=== PATIENT | male | born 1995 | race Caucasian/White ===

== ENCOUNTER 2018-05-01 02:06 | Inpatient (IN) | payer OTHER ==
[2018-05-01] VITALS (15 sets, daily range): BP systolic 14–145; BP diastolic 60–84; PULSE 67–99; RESP 15–23; Ht 180.3 cm; Wt 97.1 kg
[~2018-05-01] VITALS: Ht 180.3 cm; Wt 97.1 kg
[2018-05-01] MEDS ORDERED: morphine 4 MG/ML VIAL IV STA (03:23)
[2018-05-01] MEDS ORDERED: SOD CHLORIDE 0.9% 1,000 ML IV STA (03:23)
[2018-05-01] MEDS ORDERED: ONDANSETRON 4 MG INJ IV STA ×2 (03:23→04:35)
[2018-05-01] MEDS ORDERED: HYDROmorphONE 0.5 MG/0.5 ML SYG IV STA (04:35)
--- NOTE | 2018-05-01 05:31 | ERD ---
ER Documentation Chief Complaint Chief Complaint abdominal pain/vomiting x 1 day HPI 22-year-old male presents with 10 out of 10 bilateral lower abdominal pain associated with nonbilious nonbloody vomiting for the past few hours. Patient denies any fevers. Diarrhea. She states that his last meal was at midnight however he vomited. Patient denies taking any medications. Denies any abdominal surgeries. ROS All systems reviewed and are negative except as per history of present illness. Allergies Allergies: Coded Allergies: No Known Drug Allergy (Verified Allergy, Unknown, 05/01/18) PMhx/Soc Medical and Surgical Hx: pt denies Medical Hx, pt denies Surgical Hx Hx Alcohol Use: No Hx Substance Use: No Hx Tobacco Use: No Smoking Status: Never smoker Physical Exam Vitals Vital Signs Date Temp Pulse Resp B/P (MAP) Pulse Ox O2 O2 Flow FiO2 Time Delivery Rate 05/01/18 86 21 133/83 98 Room Air 05:19 (100) 05/01/18 98.6 100 18 139/79 97 02:09 (99) Physical Exam Const: No acute distress Head: Atraumatic Eyes: Normal Conjunctiva ENT: Normal External Ears, Nose and Mouth. Neck: Full range of motion. No meningismus. Resp: Clear to auscultation bilaterally Cardio: Regular rate and rhythm, no murmurs Abd: Tender palpation of the and right lower quadrant. Palpation of the left pelvic region Skin: No petechiae or rashes Back: No midline or flank tenderness Ext: No cyanosis, or edema Neur: Awake and alert Psych: Normal Mood and Affect Result Diagram: 05/01/18 0345 05/01/18 0345 Results 24 hrs Laboratory Tests Test 05/01/18 03:45 05/01/18 04:12 White Blood Count 19.5 10^3/ul Red Blood Count 5.23 10^6/ul Hemoglobin 16.0 g/dl Hematocrit 44.6 % Mean Corpuscular Volume 85.3 fl Mean Corpuscular Hemoglobin 30.6 pg Mean Corpuscular Hemoglobin Concent 35.9 g/dl Red Cell Distribution Width 11.9 % Platelet Count 217 10^3/UL Mean Platelet Volume 11.8 fl Immature Granulocytes % 0.500 % Neutrophils % 87.4 % Lymphocytes % 4.5 % Monocytes % 7.3 % Eosinophils % 0.1 % Basophils % 0.2 % Nucleated Red Blood Cells % 0.0 /100WBC Immature Granulocytes # 0.100 10^3/ul Neutrophils # 17.1 10^3/ul Lymphocytes # 0.9 10^3/ul Monocytes # 1.4 10^3/ul Eosinophils # 0.0 10^3/ul Basophils # 0.0 10^3/ul Nucleated Red Blood Cells # 0.0 10^3/ul Sodium Level 140 mmol/L Potassium Level 3.5 mmol/L Chloride Level 102 mmol/L Carbon Dioxide Level 25 mmol/L Anion Gap 13 Blood Urea Nitrogen 13 mg/dl Creatinine 0.72 mg/dl Est Glomerular Filtrat Rate mL/min > 60 mL/min Glucose Level 128 mg/dl Calcium Level 9.9 mg/dl Total Bilirubin 0.9 mg/dl Direct Bilirubin 0.00 mg/dl Indirect Bilirubin 0.9 mg/dl Aspartate Amino Transf (AST/SGOT) 73 IU/L Alanine Aminotransferase (ALT/SGPT) 144 IU/L Alkaline Phosphatase 117 IU/L Total Protein 9.0 g/dl Albumin 5.1 g/dl Globulin 3.90 g/dl Albumin/Globulin Ratio 1.30 Lipase 66 U/L Urine Color YELLOW Urine Clarity CLEAR Urine pH 7.0 Urine Specific [place] 1.026 Urine Ketones 2+ mg/dL Urine Nitrite NEGATIVE mg/dL Urine Bilirubin NEGATIVE mg/dL Urine Urobilinogen NEGATIVE mg/dL Urine Leukocyte Esterase NEGATIVE Jet/ul Urine Hemoglobin NEGATIVE mg/dL Urine Glucose NEGATIVE mg/dL Urine Total Protein NEGATIVE mg/dl Current Medications Medications Dose Sig/Abigail Start Time Status Last (Trade) Ordered Route PRN Stop Time Admin Dose Reason Admin Sodium 1,000 ml @ Q1H STAT 05/01/18 DC 05/01/18 Chloride 1,000 mls/hr IV 03:23 05/01/18 03:51 04:22 Morphine 4 mg ONCE STAT 05/01/18 DC 05/01/18 Sulfate IV 03:23 05/01/18 03:51 (morphine) 03:24 Ondansetron 4 mg ONCE STAT 05/01/18 DC 05/01/18 HCl (Zofran IV 03:23 05/01/18 03:51 Inj) 03:24 0.5 mg ONCE STAT 05/01/18 DC 05/01/18 Hydromorphone IV 04:35 05/01/18 05:13 HCl 04:38 (Dilaudid) Ondansetron 4 mg ONCE STAT 05/01/18 DC 05/01/18 HCl (Zofran IV 04:35 05/01/18 05:13 Inj) 04:38 Procedures/MDM This is a 22-year-old male presenting with acute appendicitis any evidence of perforation or abscess. Patient is afebrile and nontoxic-appearing. IV access established patient was given 1 L fluids. His pain stabilized in the emergency department and he is stable to be transferred to the OR. I discussed this case with my supervising physician who will obtain hospitalist and surgery consult Departure Diagnosis: Primary Impression: Appendicitis Condition: YOKO Coleman PA-C May 01, 2018 05:31
--- NOTE | 2018-05-01 05:57 | HP ---
Date/Time of Note Date/Time of Note DATE: 05/01/18 TIME: 05:52 Assessment/Plan VTE Prophylaxis SCD applied (from Nsg): Yes Pharmacological prophylaxis: NA/contraindicated Pharm contraindication: low risk/ambulating Lines/Catheters IV Catheter Type (from Nrsg): Saline Lock Assessment/Plan Hospital Course This is a 22-year male being admitted to the [facility] floor for: #1 acute appendicitis: We will keep the patient n.p.o. except meds, maintenance fluid hydration with normal saline, pain management, Zofran for nausea, Zosyn every 6 hours, general surgery is already been consulted by the ED, doctor Brando. Will check PTT/INR/PT #2 transaminitis: Likely secondary to fatty liver seen on CT. Will check lipid panel. Will need outpatient follow-up. #3 borderline obesity: We will check hemoglobin A1c, lipid panel, TSH #4 DVT GI prophylaxis: SCDs, no GI prophylaxis indicated Further treatment strategy will be implemented as per the clinical course Result Diagram: 05/01/18 0345 05/01/18 0345 Results 24hrs Laboratory Tests Test 05/01/18 03:45 05/01/18 04:12 White Blood Count 19.5 H Red Blood Count 5.23 Hemoglobin 16.0 Hematocrit 44.6 Mean Corpuscular Volume 85.3 Mean Corpuscular Hemoglobin 30.6 Mean Corpuscular Hemoglobin Concent 35.9 Red Cell Distribution Width 11.9 Platelet Count 217 Mean Platelet Volume 11.8 H Immature Granulocytes % 0.500 H Neutrophils % 87.4 H Lymphocytes % 4.5 L Monocytes % 7.3 Eosinophils % 0.1 Basophils % 0.2 Nucleated Red Blood Cells % 0.0 Immature Granulocytes # 0.100 H Neutrophils # 17.1 H Lymphocytes # 0.9 Monocytes # 1.4 H Eosinophils # 0.0 Basophils # 0.0 Nucleated Red Blood Cells # 0.0 Sodium Level 140 Potassium Level 3.5 Chloride Level 102 Carbon Dioxide Level 25 Anion Gap 13 Blood Urea Nitrogen 13 Creatinine 0.72 Est Glomerular Filtrat Rate mL/min > 60 Glucose Level 128 Calcium Level 9.9 Total Bilirubin 0.9 Direct Bilirubin 0.00 Indirect Bilirubin 0.9 Aspartate Amino Transf (AST/SGOT) 73 H Alanine Aminotransferase (ALT/SGPT) 144 H Alkaline Phosphatase 117 Total Protein 9.0 H Albumin 5.1 H Globulin 3.90 H Albumin/Globulin Ratio 1.30 Lipase 66 Urine Color YELLOW Urine Clarity CLEAR Urine pH 7.0 Urine Specific [place] 1.026 Urine Ketones 2+ H Urine Nitrite NEGATIVE Urine Bilirubin NEGATIVE Urine Urobilinogen NEGATIVE Urine Leukocyte Esterase NEGATIVE Urine Hemoglobin NEGATIVE Urine Glucose NEGATIVE Urine Total Protein NEGATIVE HPI/ROS Admit Date/Time Admit Date/Time Hx of Present Illness Chief complaint: Abdominal pain This is a 22-year-old male who comes in today complaining of abdominal pain that started last night. Patient reports that abdominal pain started approximately 7 PM last night with associated nausea and vomiting. He reports that the pain is across the abdomen. He denies any chest pain or shortness of breath. He denies any fevers. He did receive pain medications in the ER that did improve the pain however at the current time his pain is a 7 out of 10. He denies any dysuria. Denies eating any foul food. Allergies: Seafood Medications: None ROS Const: As per HPI Eyes : No pain discharge or redness or change in visual acuity ENT: No pain, sore throat, congestion, congestion, dysphagia or discharge Respiratory: No shortness of breath, cough, sputum, wheezing, or pleuritic pain Cardiovascular: No chest pain, palpitation, PND, or edema GI : As per HPI Genitourinary: No dysuria, hematuria, flank pain , discharge or CVA tenderness Musculoskeletal: No joint pain, back pain, neck pain, restricted range of motion in neck or joints Skin: No rash, bruising or hives Neuro: No headache, dizziness, syncope, seizure, focal weakness Endocrine: No polyuria, polydipsia, temperature intolerance Psych: No hallucination, depression, anxiety or suicidal ideation PMH/Family/Social Past Medical History Medical History: no pertinent history Medications Current Medications Piperacillin Sod/ Tazobactam Sod 100 ml @ 200 mls/hr ONCE ONCE IVPB ; Start 05/01/18 at 06:00; Stop 05/01/18 at 06:29 Coded Allergies: No Known Drug Allergy (Verified Allergy, Unknown, 05/01/18) Past Surgical History Past Surgical Hx: no surgical history Family History Significant Family History: no pertinent family hx Social History Alcohol Use: none Smoking Status: Never smoker Drug Use: none Exam/Review of Systems Vital Signs Vitals Vital Signs Date Temp Pulse Resp B/P (MAP) Pulse Ox O2 O2 Flow FiO2 Time Delivery Rate 05/01/18 86 21 133/83 98 Room Air 05:19 (100) 05/01/18 98.6 02:09 Exam Exam General: Patient is a pleasant male currently lying in bed in mild distress from abdominal pain HEENT: Atraumatic, normocephalic. The pupils are equal, round and reactive. Extraocular motor are intact Neck: Supple with full range of motion. No rigidity or meningismus Chest: Nontender Lungs: Clear to auscultation bilaterally no crackles rales or wheezing Heart: Normal S1-S2, Regular rhythm and rate. No murmur, S3, or S4 Abdomen: Soft, tenderness palpation over the left lower quadrant as well as the central lower abdomen, right lower quadrant tenderness to palpation however it is greater on the left, positive McBurney's point tenderness Extremities: Normal to inspection, no edema no cyanosis Neurologic: Normal mental status, speech normal, cranial nerves II through XII are intact, motor and sensory are intact, no focal weakness Additional Comments PROCEDURE: CT Abdomen and pelvis without contrast. CLINICAL INDICATION: Abdominal pain TECHNIQUE: CT scan of the abdomen and pelvis without contrast was performed on a multidetector high-resolution CT scan. . Coronal and sagittal reformatted images were obtained from the axial source images. Standard CT scan of the abdomen pelvis without contrast protocols were performed. The total exam CTDI equals 17.45 mGy and the total exam DLP equals 1132.03 mGy- cm. One or more of the following dose reduction techniques were used: - Automated exposure control. - Adjustment of the mA and/or kV according to patient size. Use of iterative reconstruction technique. Dicom images are available COMPARISON: None. FINDINGS: The appendix is dilated with a maximal transverse diameter 1.2 cm with wall thickening and mild periappendiceal induration/stranding consistent with acute appendicitis. Negative free air or abscess. Trace fluid in the lower pelvis. Prominent but nonspecific lymph nodes right lower quadrant mesentery. No definite abdominal pelvic lymphadenopathy. Stomach, small bowel and large bowel are unremarkable. Kidneys are normal in size without calcified calculi hydronephrosis or intra renal masses bilaterally. No evidence of ureteral calcified calculi or dilatat ion. Contracted otherwise unremarkable urinary bladder. Prostate unremarkable. Hepatomegaly with diffuse hepatic fatty infiltration but no focal hepatic lesions. Spleen pancreas adrenal glands and gallbladder are unremarkable. No evidence biliary ductal dilation. Aorta unremarkable. Right inguinal fat-containing hernia without herniated bowel or strangulation. Abdominal pelvic wall otherwise unremarkable. Small focal scarring lingula left upper lobe. Lung bases otherwise unremarkable. Mild degenerate changes lower thoracic and lumbar spine without acute osseous findings are osteoblastic/osteolytic lesions. IMPRESSION: 1. Acute appendicitis as described above without free air or abscess. 2. Small right fat containing inguinal hernia without herniated bowel or strangulation. III hepatomegaly with diffuse hepatic fatty infiltration. Addendum: Physician field administrative assistant Svitlana was telephoned this results on 05/01/2018 at 0428 hours. RPTAT:AAJJ Physician Arlin Date Time Electronically viewed and signed by Physician Arlin on 05/01/2018 04:36 BM/ CC: YOKO VAZ PA-C [id number] YAMILA DURAN May 01, 2018 05:57
[2018-05-01] MEDS ORDERED: PIPER-TAZO 3.375 GM IV (PMX) 100 ML IVPB ONE (06:00)
[2018-05-01] MEDS ORDERED: ONDANSETRON 4 MG INJ IV PRN ×2 (06:00→16:00)
[2018-05-01] MEDS ORDERED: NACL 0.9% 3 ML SYG IV SCH (06:00)
[2018-05-01] MEDS ORDERED: ACETAMINOPHEN 325 MG TAB PO PRN (06:00)
[2018-05-01] MEDS ORDERED: morphine 2 MG INJ IV PRN (06:00)
[2018-05-01] MEDS ORDERED: DOCUSATE SODIUM 100 MG CAP PO PRN (06:00)
[2018-05-01] MEDS ORDERED: BISACODYL (EC) 5 MG TAB PO PRN (06:00)
[2018-05-01] MEDS ORDERED: DESFLURANE 15 MIN ONE (07:00)
[2018-05-01] MEDS: SOD CHLORIDE 0.9% 1,000 ML IV SCH ×3 (10:37→18:13)
[2018-05-01] MEDS: morphine 4 MG/ML VIAL IV PRN ×2 (10:48→18:12)
--- NOTE | 2018-05-01 11:33 | PN ---
Date/Time of Note Date/Time of Note DATE: 05/01/18 TIME: 11:30 Assessment/Plan VTE Prophylaxis Risk score (from Ns)>0 risk: 1 SCD applied (from Ns): Yes Pharmacological prophylaxis: NA/contraindicated Pharm contraindication: low risk/ambulating Lines/Catheters IV [facility]from [facility] Saline Lock Urinary Cath still in place: No Assessment/Plan Hospital Course SUBJECTIVE: Abdominal pain well controlled with analgesics. OBJECTIVE: Physical Exam General: Adequately build 22 year-old male lying in bed in no apparent distress. HEENT: Normocephalic, atraumatic. Eyes: Anicteric sclerae, conjunctivae clear. ENT: Nasal septum midline, oral mucosa moist. Neck supple, no JVD noticed. Respiratory: Bilaterally clear breath sounds. No use of accessory muscles of respiration. No adventitious breath sounds. Cardiovascular: S1, S2 heard. No murmurs or gallops. Abdomen: Soft and nondistended. Right lower quadrant tenderness, positive Rov sing sign. Bowel sounds positive in all 4 quadrants. Genitourinary: Deferred. Extremities: No cyanosis, no clubbing, no edema. Peripheral pulses palpable. Neurologic: Cranial nerves II through XII grossly intact. The patient is awake, alert, and oriented. Skin: Normal skin turgor. No skin rashes. Labs & Vitals per chart ASSESSMENT & PLAN 22-year-old male who denied any significant past medical history who came to the emergency room with chief complaint of abdominal pain with associated nausea and vomiting with CT evidence of acute appendicitis, who was admitted to inpatient setting for further treatment and evaluation. 1. Acute abdominal pain. -CT evidence of acute appendicitis. -Continue n.p.o. -Continue IV fluids. -Continue empiric antibiotics -Continue pain control. -Await surgical evaluation/intervention. 2. Sepsis with leukocytosis and tachycardia secondary to underlying appendicitis, present on admission. -Continue antimicrobials. 3. Transaminitis without hyperbilirubinemia. -Etiology unclear. -Trend LFTs. -Possibly related to fatty liver. 4. Fatty liver. -Incidental finding. -Fasting lipid panel already ordered. 5. Fluids, electrolytes, and nutrition. -N.p.o. except for medications. -IV fluids. 6. DVT prophylaxis -Bilateral SCDs. 7. Plan. -Continue pain control. -Continue n.p.o. -Continue antibiotics -Await surgical evaluation. The patient was seen in collaboration with Dr. Myers. The plan of care was explained to the patient and the patient's mother who was at the bedside. Result Diagram: 05/01/18 0345 05/01/18 0345 Results 24hrs Laboratory Tests Test 05/01/18 03:45 05/01/18 04:12 05/01/18 07:13 White Blood Count 19.5 H Red Blood Count 5.23 Hemoglobin 16.0 Hematocrit 44.6 Mean Corpuscular Volume 85.3 Mean Corpuscular Hemoglobin 30.6 Mean Corpuscular Hemoglobin Concent 35.9 Red Cell Distribution Width 11.9 Platelet Count 217 Mean Platelet Volume 11.8 H Immature Granulocytes % 0.500 H Neutrophils % 87.4 H Lymphocytes % 4.5 L Monocytes % 7.3 Eosinophils % 0.1 Basophils % 0.2 Nucleated Red Blood Cells % 0.0 Immature Granulocytes # 0.100 H Neutrophils # 17.1 H Lymphocytes # 0.9 Monocytes # 1.4 H Eosinophils # 0.0 Basophils # 0.0 Nucleated Red Blood Cells # 0.0 Sodium Level 140 Potassium Level 3.5 Chloride Level 102 Carbon Dioxide Level 25 Anion Gap 13 Blood Urea Nitrogen 13 Creatinine 0.72 Est Glomerular Filtrat Rate mL/min > 60 Glucose Level 128 Calcium Level 9.9 Total Bilirubin 0.9 Direct Bilirubin 0.00 Indirect Bilirubin 0.9 Aspartate Amino Transf (AST/SGOT) 73 H Alanine Aminotransferase (ALT/SGPT) 144 H Alkaline Phosphatase 117 Total Protein 9.0 H Albumin 5.1 H Globulin 3.90 H Albumin/Globulin Ratio 1.30 Lipase 66 Urine Color YELLOW Urine Clarity CLEAR Urine pH 7.0 Urine Specific [place] 1.026 Urine Ketones 2+ H Urine Nitrite NEGATIVE Urine Bilirubin NEGATIVE Urine Urobilinogen NEGATIVE Urine Leukocyte Esterase NEGATIVE Urine Hemoglobin NEGATIVE Urine Glucose NEGATIVE Urine Total Protein NEGATIVE Prothrombin Time 13.4 Prothrombin Time Ratio 1.0 INR International Normalized Ratio 1.01 Activated Partial Thromboplast Time 31.9 Exam/Review of Systems Vital Signs Vitals Vital Signs Date Temp Pulse Resp B/P (MAP) Pulse Ox O2 O2 Flow FiO2 Time Delivery Rate 05/01/18 98.4 88 16 112/60 98 07:55 (77) 05/01/18 Room Air 06:17 Medications Medications Current Medications Sodium Chloride 1,000 ml @ 100 mls/hr Q10H IV Last administered on 05/01/18at 10 :37; Admin Dose 100 MLS/HR; Start 05/01/18 at 05:57 IV Flush (NS 3 ml) 3 ml PER PROTOCOL IV ; Start 05/01/18 at 06:00 Ondansetron HCl (Zofran Inj) 4 mg Q6H PRN IV NAUSEA AND/OR VOMITING; Start 05/01/18 at 06:00 Acetaminophen (Tylenol Tab) 650 mg Q6H PRN PO PAIN LEVEL 1-3 OR FEVER; Start 05/01/18 at 06:00 Docusate Sodium (Colace) 100 mg Q12H PRN PO CONSTIPATION; Start 05/01/18 at 06:00 Bisacodyl (Dulcolax) 5 mg DAILY PRN PO CONSTIPATION; Start 05/01/18 at 06:00 Morphine Sulfate (morphine) 4 mg Q4H PRN IV SEVERE PAIN LEVEL 7-10 Last administered on 05/01/18at 10:48; Admin Dose 4 MG; Start 05/01/18 at 11:00 MATTHEW HERNANDES NP May 01, 2018 11:33
[2018-05-01] MEDS: PIPER-TAZO 3.375 GM IV (PMX) 100 ML IVPB SCH ×3 (12:17→23:43)
--- NOTE | 2018-05-01 12:50 | CONS ---
Date/Time of Note Date/Time of Note DATE: 05/01/18 TIME: 12:37 Assessment/Plan Assessment/Plan Assessment/Plan 1. Acute appendicitis: -OR -Antibiotics -N.p.o. 2. Leukocytosis: 2/2 #1 -As above -Trend 3. Abdominal pain: -Pain management 4. Mild transaminitis with CT findings of Hepatomegaly with hepatic fatty infiltration: -Diet and exercise/weight management -medical/Hepatology follow-up Small right fat-containing inguinal hernia: -Weight loss -Eventual outpatient surgical follow-up Thank you. Patient seen and examined in collaboration with Dr. Ramu Michaels. Result Diagram: 05/01/18 0345 05/01/18 0345 Results 24hrs Laboratory Tests Test 05/01/18 03:45 05/01/18 04:12 05/01/18 07:13 White Blood Count 19.5 H Red Blood Count 5.23 Hemoglobin 16.0 Hematocrit 44.6 Mean Corpuscular Volume 85.3 Mean Corpuscular Hemoglobin 30.6 Mean Corpuscular Hemoglobin Concent 35.9 Red Cell Distribution Width 11.9 Platelet Count 217 Mean Platelet Volume 11.8 H Immature Granulocytes % 0.500 H Neutrophils % 87.4 H Lymphocytes % 4.5 L Monocytes % 7.3 Eosinophils % 0.1 Basophils % 0.2 Nucleated Red Blood Cells % 0.0 Immature Granulocytes # 0.100 H Neutrophils # 17.1 H Lymphocytes # 0.9 Monocytes # 1.4 H Eosinophils # 0.0 Basophils # 0.0 Nucleated Red Blood Cells # 0.0 Sodium Level 140 Potassium Level 3.5 Chloride Level 102 Carbon Dioxide Level 25 Anion Gap 13 Blood Urea Nitrogen 13 Creatinine 0.72 Est Glomerular Filtrat Rate mL/min > 60 Glucose Level 128 Calcium Level 9.9 Total Bilirubin 0.9 Direct Bilirubin 0.00 Indirect Bilirubin 0.9 Aspartate Amino Transf (AST/SGOT) 73 H Alanine Aminotransferase (ALT/SGPT) 144 H Alkaline Phosphatase 117 Total Protein 9.0 H Albumin 5.1 H Globulin 3.90 H Albumin/Globulin Ratio 1.30 Lipase 66 Urine Color YELLOW Urine Clarity CLEAR Urine pH 7.0 Urine Specific [place] 1.026 Urine Ketones 2+ H Urine Nitrite NEGATIVE Urine Bilirubin NEGATIVE Urine Urobilinogen NEGATIVE Urine Leukocyte Esterase NEGATIVE Urine Hemoglobin NEGATIVE Urine Glucose NEGATIVE Urine Total Protein NEGATIVE Prothrombin Time 13.4 Prothrombin Time Ratio 1.0 INR International Normalized Ratio 1.01 Activated Partial Thromboplast Time 31.9 Consultation Date/Type/Reason Admit Date/Time Date of Consultation: May 01, 2018 Type of Consult surgical Reason for Consultation appendicitis Requesting Provider: SAUNDRA RICH MD Hx of Present Illness Delio sánchez is a 22-year-old man without significant past medical or surgical history who presents to the ED with complaints of lower abdominal pain. Lower abdominal pain began the night prior. Pain is described as strong and persistent. Associated symptoms include nausea with vomiting, nonbloody emesis. He denies fevers, chills, chest pain, palpitations, seizure, rash, abdominal injury, change in bowel or bladder habits. CT of the abdomen shows dilated appendix with maximal transverse diameter 1.2 cm with wall thickening mild periappendiceal induration/stranding. Leukocytosis was also noted on laboratory findings. General surgery was asked to evaluate. 12 point review of systems was performed and is negative except for stated in HPI. Past Medical History Obesity: BMI 30 Medications Current Medications Sodium Chloride 1,000 ml @ 100 mls/hr Q10H IV Last administered on 05/01/18at 10:37; Admin Dose 100 MLS/HR; Start 05/01/18 at 05:57 IV Flush (NS 3 ml) 3 ml PER PROTOCOL IV ; Start 05/01/18 at 06:00 Ondansetron HCl (Zofran Inj) 4 mg Q6H PRN IV NAUSEA AND/OR VOMITING; Start 05/01/18 at 06:00 Acetaminophen (Tylenol Tab) 650 mg Q6H PRN PO PAIN LEVEL 1-3 OR FEVER; Start 05/01/18 at 06:00 Docusate Sodium (Colace) 100 mg Q12H PRN PO CONSTIPATION; Start 05/01/18 at 06:00 Bisacodyl (Dulcolax) 5 mg DAILY PRN PO CONSTIPATION; Start 05/01/18 at 06:00 Morphine Sulfate (morphine) 4 mg Q4H PRN IV SEVERE PAIN LEVEL 7-10 Last administered on 05/01/18at 10:48; Admin Dose 4 MG; Start 05/01/18 at 11:00 Piperacillin Sod/ Tazobactam Sod 100 ml @ 200 mls/hr Q6 IVPB Last administered on 05/01/18at 12:17; Admin Dose 200 MLS/HR; Start 05/01/18 at 12:00 Allergies: Coded Allergies: No Known Drug Allergy (Verified Allergy, Unknown, 05/01/18) Past Surgical History Past Surgical Hx: no surgical history Social History Alcohol Use: none Smoking Status: Never smoker Drug Use: none Exam/Review of Systems Vital Signs Vitals Vital Signs Date Temp Pulse Resp B/P (MAP) Pulse Ox O2 O2 Flow FiO2 Time Delivery Rate 05/01/18 98.4 88 16 112/60 98 07:55 (77) 05/01/18 Room Air 06:17 Exam Constitutional: alert, oriented, well developed Psych: nl mood/affect; No anxiety Head: normocephalic, atraumatic Eyes: nl conjunctiva, EOMI, nl lids, nl sclera ENMT: nl external ears & nose, nl lips & teeth, mucosa pink and moist Neck: supple, non-tender; No jvd Respiratory: normal air movement; No congested cough, No labored breathing Cardiovascular: regular rate and rhythm, nl pulses; No edema Gastrointestinal: soft, tender (Bilateral lower quadrants; McBurney's point) Genitourinary - Male: nl penis, nl scrotum Musculoskeletal: nl extremities to inspection, nl gait and stance Extremities: normal pulses; No edema, No pitting pedal edema Neurological: nl speech, nl strength Skin: No rash or lesions Medications Medications Current Medications Sodium Chloride 1,000 ml @ 100 mls/hr Q10H IV Last administered on 05/01/18at 10:37; Admin Dose 100 MLS/HR; Start 05/01/18 at 05:57 IV Flush (NS 3 ml) 3 ml PER PROTOCOL IV ; Start 05/01/18 at 06:00 Ondansetron HCl (Zofran Inj) 4 mg Q6H PRN IV NAUSEA AND/OR VOMITING; Start 05/01/18 at 06:00 Acetaminophen (Tylenol Tab) 650 mg Q6H PRN PO PAIN LEVEL 1-3 OR FEVER; Start 05/01/18 at 06:00 Docusate Sodium (Colace) 100 mg Q12H PRN PO CONSTIPATION; Start 05/01/18 at 06:00 Bisacodyl (Dulcolax) 5 mg DAILY PRN PO CONSTIPATION; Start 05/01/18 at 06:00 Morphine Sulfate (morphine) 4 mg Q4H PRN IV SEVERE PAIN LEVEL 7-10 Last administered on 05/01/18at 10:48; Admin Dose 4 MG; Start 05/01/18 at 11:00 Piperacillin Sod/ Tazobactam Sod 100 ml @ 200 mls/hr Q6 IVPB Last administered on 05/01/18at 12:17; Admin Dose 200 MLS/HR; Start 05/01/18 at 12:00 LOI GUY NP May 01, 2018 12:49
--- NOTE | 2018-05-01 14:50 | PREAC ---
Date/Time of Note Date/Time of Note DATE: 05/01/18 TIME: 14:49 Anesthesia Eval and Record Evaluation Time Pre-Procedure Interview DATE: 05/01/18 TIME: 14:49 Age 22 Sex male NPO: 8 hrs Preoperative diagnosis abdominal pain Planned procedure laparosopic vs open appendectomy Past Medical History Past Medical History: None Surgery & Anesthesia Issues No known issue Meds Anticoagulation: No Beta Jevon within 24 hr: No Reason Beta Jevon not given: Pt. not on B-Jevon No Active Prescriptions or Reported Meds Current Medications Sodium Chloride 1,000 ml @ 100 mls/hr Q10H IV Last administered on 05/01/18at 10:37; Admin Dose 100 MLS/HR; Start 05/01/18 at 05:57 IV Flush (NS 3 ml) 3 ml PER PROTOCOL IV ; Start 05/01/18 at 06:00 Ondansetron HCl (Zofran Inj) 4 mg Q6H PRN IV NAUSEA AND/OR VOMITING; Start 05/01/18 at 06:00 Acetaminophen (Tylenol Tab) 650 mg Q6H PRN PO PAIN LEVEL 1-3 OR FEVER; Start 05/01/18 at 06:00 Docusate Sodium (Colace) 100 mg Q12H PRN PO CONSTIPATION; Start 05/01/18 at 06:00 Bisacodyl (Dulcolax) 5 mg DAILY PRN PO CONSTIPATION; Start 05/01/18 at 06:00 Morphine Sulfate (morphine) 4 mg Q4H PRN IV SEVERE PAIN LEVEL 7-10 Last administered on 05/01/18at 10:48; Admin Dose 4 MG; Start 05/01/18 at 11:00 Piperacillin Sod/ Tazobactam Sod 100 ml @ 200 mls/hr Q6 IVPB Last administered on 05/01/18at 12:17; Admin Dose 200 MLS/HR; Start 05/01/18 at 12:00 Meds reviewed: Yes Allergies Coded Allergies: No Known Drug Allergy (Verified Allergy, Unknown, 05/01/18) Allergies Reviewed: Yes Labs/Studies Labs Reviewed: Reviewed by anesthesiologist Result Diagram: 05/01/18 0345 05/01/18 0345 Laboratory Tests 05/01/18 03:45 test: N/A Pre-procedure Exam Last vitals Vital Signs Date Temp Pulse Resp B/P (MAP) Pulse Ox O2 O2 Flow FiO2 Time Delivery Rate 05/01/18 98.4 88 16 112/60 98 07:55 (77) 05/01/18 Room Air 06:17 Airway: Adequate mouth opening Mallampati: Mallampati I Teeth: Normal Lung: Normal Heart: Normal ASA Physical Status ASA physical status: 1 Emergency: None Planned Anesthetic General/MAC: ETT Pre-operative Attestations Prior to commencing anesthesia and surgery, the patient was re-evaluated, there was verification of: *The patient's identity *The results of appropriate recent lab work and preoperative vital signs *The above evaluation not changing prior to induction *Anesthetic plan, risk benefits, alternative and complications discussed with patient/family; questions answered; patient/family understands, accepts and wishes to proceed. CASS ALMANZA May 01, 2018 14:50
[2018-05-01] MEDS ORDERED: METOCLOPRAMIDE 10 MG INJ ONE (15:26)
[2018-05-01] MEDS ORDERED: PROPOFOL 20 ML ONE (15:26)
[2018-05-01] MEDS ORDERED: ROPIVACAINE 0.5 % 30 ML VIAL ONE (15:26)
[2018-05-01] MEDS ORDERED: MIDAZOLAM 1 MG/ML 2 ML INJ ONE (15:26)
[2018-05-01] MEDS ORDERED: ONDANSETRON 4 MG INJ ONE (15:26)
[2018-05-01] MEDS ORDERED: ROCURONIUM 50 MG INJ ONE (15:26)
[2018-05-01] MEDS ORDERED: MEPERIDINE 25 MG INJ IV PRN (16:00)
[2018-05-01] MEDS ORDERED: DIPHENHYDRAMINE 50 MG INJ IV PRN (16:00)
[2018-05-01] MEDS ORDERED: HYDROmorphONE 1 MG/5 ML IV SYRINGE IV PRN ×3 (16:00)
[2018-05-01] MEDS ORDERED: KETOROLAC 30 MG INJ IV PRN (16:00)
[2018-05-01] MEDS ORDERED: KETOROLAC 30 MG INJ ONE (16:04)
[2018-05-01] MEDS ORDERED: NEOSTIGMINE 3 MG/3 ML SYRINGE ONE (16:14)
--- NOTE | 2018-05-01 16:53 | OPR ---
Date/Time of Note Date/Time of Note DATE: 05/01/18 TIME: 16:50 Operative Report Free Text/Dictation Preoperative Diagnosis 1. Acute appendicitis 2. BMI 30 Postoperative Diagnosis 1. Acute appendicitis with microperforation 2. BMI 30 3. Small right inguinal indirect hernia 4. Discussed the liver probably steatotic Operation Performed 1. Laparoscopic appendectomy and washout Surgeon: NILA ALONZO MD Laster Hand: None Anesthesia: general (Plus local plus regional) Anesthesiologist: Renée Sarkar MD Estimated Blood Loss: 10 ml's Specimens: Appendix Tubes/Drains None Complications: None Pt Condition Post Procedure: stable Disposition: PACU Indications: Per consult note. Risks include but are not limited to bleeding, infection, abscess, seroma, leak, damage to intestines or any intra-abdominal/intrapelvic structures, hernia formation, chronic pain, need for re-operations or further surgeries, DC, stroke, PE, DVT, pneumonia, organ failures, or even . Procedure Note: Patient was brought into the operating room, placed supine on the operating table, SCDs were placed, left arm was tucked, all pressure points were well- padded, preoperative antibiotics administered, and after induction of anesthesia, patient was prepped and draped in usual sterile fashion, and timeout was performed. Incision was made supraumbilically and the Veress needle was safely place into the abdomen. After negative sip test, abdomen was insufflated to 15 mmHg with CO2. At this point Veress was removed and the 5 mm blunt trocar was placed into the abdomen. Laparoscopy was performed and no injuries were identified using a 5 mm 30 scope. Under direct visualization another 5 mm port was placed and left lower quadrant and 12 mm port and suprapubic region avoiding the bladder. Patient was placed in Trendelenburg and right side up. The appendix was found to be inflamed with evidence of perforation, micro. There is a small right indirect inguinal hernia. The liver looks abnormal coloration, yellow discoloration probably fatty). The base was transected using Endo ANA LAURA white load automatic 35 mm stapler just on the cecum. The henrik were fired fully. The mesoappendix was transected with another white load stapler. Hemostasis was fully obtained. The appendix was placed in an Endo Catch bag and removed through the suprapubic port site. That fascia was closed with Endo Close and 0 Vicryl in a [id number] manner avoiding the bladder. Ports and CO2 were removed under direct visualization, wounds were fully irrigated, and skin was closed in subcuticular fashion using 4-0 Monocryl. Dermabond was applied. All counts were correct and the end of the operation 2. Patient was extubated and transferred to recovery room in stable condition. NILA ALONZO MD May 01, 2018 16:53
[2018-05-02 02:34] VITALS: BP 111/58; PULSE 80; RESP 18
[2018-05-02] MEDS: morphine 4 MG/ML VIAL IV PRN (03:11)
[2018-05-02] MEDS: PIPER-TAZO 3.375 GM IV (PMX) 100 ML IVPB SCH ×4 (05:32→23:59)
[2018-05-02 08:02] VITALS: BP 123/74; PULSE 71; RESP 18
[2018-05-02] MEDS: SOD CHLORIDE 0.9% 1,000 ML IV SCH ×2 (09:41→22:23)
--- NOTE | 2018-05-02 10:04 | PN ---
Date/Time of Note Date/Time of Note DATE: 05/02/18 TIME: 10:01 Assessment/Plan VTE Prophylaxis Risk score (from Ns)>0 risk: 3 SCD applied (from Ns): Yes Pharmacological prophylaxis: NA/contraindicated Pharm contraindication: low risk/ambulating Lines/Catheters IV Catheter Type (from Nrsg): Saline Lock Urinary Cath still in place: No Assessment/Plan Hospital Course SUBJECTIVE: Tolerating clears. Complains of incisional pain. OBJECTIVE: Physical Exam General: Adequately build 22 year-old male lying in bed in no apparent distress. HEENT: Normocephalic, atraumatic. Eyes: Anicteric sclerae, conjunctivae clear. ENT: Nasal septum midline, oral mucosa moist. Neck supple, no JVD noticed. Respiratory: Bilaterally clear breath sounds. No use of accessory muscles of respiration. No adventitious breath sounds. Cardiovascular: S1, S2 heard. No murmurs or gallops. Abdomen: Soft and nondistended. Laparoscopic incision sites Genitourinary: Deferred. Extremities: No cyanosis, no clubbing, no edema. Peripheral pulses palpable. Neurologic: Cranial nerves II through XII grossly intact. The patient is awake, alert, and oriented. Skin: Normal skin turgor. No skin rashes. Labs & Vitals per chart ASSESSMENT & PLAN 22-year-old male who denied any significant past medical history who came to the emergency room with chief complaint of abdominal pain with associated nausea and vomiting with CT evidence of acute appendicitis, who was admitted to inpatient setting for further treatment and evaluation. 1. Acute appendicitis with microperforation. -Status post laparoscopic appendectomy with washout on 05/01/2018. -Continue antimicrobials. 2. Sepsis with leukocytosis and tachycardia secondary to underlying appendic itis, present on admission. -Continue antimicrobials. 3. Transaminitis without hyperbilirubinemia. -Etiology unclear. -Trend LFTs. -Possibly related to fatty liver. 4. Fatty liver. -Incidental finding. -Fasting lipid panel satisfactory. 5. Fluids, electrolytes, and nutrition. -Clear liquid diet. -IV fluids. 6. DVT prophylaxis -Bilateral SCDs. 7. Plan. -Continue pain control. -Continue antibiotics -Encourage incentive spirometry and frequent ambulation. -Discharge planning is to discharge the patient home once cleared by general surgery. The patient was seen in collaboration with Dr. Milgrom. The plan of care was explained to the patient and the patient's mother who was at the bedside. Result Diagram: 05/02/18 0609 05/02/18 0609 Results 24hrs Laboratory Tests Test 05/02/18 06:09 White Blood Count 7.3 # Red Blood Count 4.50 L Hemoglobin 13.3 L Hematocrit 40.0 L Mean Corpuscular Volume 88.9 Mean Corpuscular Hemoglobin 29.6 Mean Corpuscular Hemoglobin Concent 33.3 Red Cell Distribution Width 12.2 Platelet Count 174 Mean Platelet Volume 12.2 H Immature Granulocytes % 0.300 Neutrophils % 67.0 Lymphocytes % 25.0 Monocytes % 6.4 Eosinophils % 1.2 Basophils % 0.1 Nucleated Red Blood Cells % 0.0 Immature Granulocytes # 0.020 Neutrophils # 4.9 Lymphocytes # 1.8 Monocytes # 0.5 Eosinophils # 0.1 Basophils # 0.0 Nucleated Red Blood Cells # 0.0 Sodium Level 142 Potassium Level 3.6 Chloride Level 105 Carbon Dioxide Level 25 Anion Gap 12 Blood Urea Nitrogen 9 Creatinine 0.75 Est Glomerular Filtrat Rate mL/min > 60 Glucose Level 96 Hemoglobin A1c 5.1 Calcium Level 8.6 Phosphorus Level 3.6 Magnesium Level 1.9 Total Bilirubin 0.9 Direct Bilirubin 0.00 Indirect Bilirubin 0.9 Aspartate Amino Transf (AST/SGOT) 46 Alanine Aminotransferase (ALT/SGPT) 100 H Alkaline Phosphatase 72 Total Protein 7.0 # Albumin 3.8 # Globulin 3.20 Albumin/Globulin Ratio 1.18 Triglycerides Level 91 Cholesterol Level 129 LDL Cholesterol, Calculated 87 HDL Cholesterol 24 L Cholesterol/HDL Ratio 5.3 Thyroid Stimulating Hormone (TSH) 0.739 Free Thyroxine 0.98 Exam/Review of Systems Vital Signs Vitals Vital Signs Date Temp Pulse Resp B/P (MAP) Pulse Ox O2 O2 Flow FiO2 Time Delivery Rate 05/02/18 97.8 71 18 123/74 98 08:02 (90) 05/01/18 Room Air 17:35 05/01/18 8.0 16:50 Intake and Output 05/01/18 05/01/18 05/02/18 1515:00 23:00 07:00 IntakeIntake Total 100 ml 2320 ml 1120 ml OutputOutput Total 5 ml BalanceBalance 100 ml 2315 ml 1120 ml Medications Medications Current Medications Sodium Chloride 1,000 ml @ 100 mls/hr Q10H IV Last administered on 05/02/18at 09:41; Admin Dose 100 MLS/HR; Start 05/01/18 at 05:57 IV Flush (NS 3 ml) 3 ml PER PROTOCOL IV ; Start 05/01/18 at 06:00 Ondansetron HCl (Zofran Inj) 4 mg Q6H PRN IV NAUSEA AND/OR VOMITING; Start 05/01/18 at 06:00 Acetaminophen (Tylenol Tab) 650 mg Q6H PRN PO PAIN LEVEL 1-3 OR FEVER; Start 05/01/18 at 06:00 Docusate Sodium (Colace) 100 mg Q12H PRN PO CONSTIPATION; Start 05/01/18 at 06:00 Bisacodyl (Dulcolax) 5 mg DAILY PRN PO CONSTIPATION; Start 05/01/18 at 06:00 Morphine Sulfate (morphine) 4 mg Q4H PRN IV SEVERE PAIN LEVEL 7-10 Last administered on 05/02/18at 03:11; Admin Dose 4 MG; Start 05/01/18 at 11:00 Piperacillin Sod/ Tazobactam Sod 100 ml @ 200 mls/hr Q6 IVPB Last administered on 05/02/18at 05:32; Admin Dose 200 MLS/HR; Start 05/01/18 at 12:00 MATTHEW HERNANDES NP May 02, 2018 10:04
--- NOTE | 2018-05-02 12:03 | RADRPT ---
Vent Rate: 78 bpm RR Interval: 0 msec CO Interval: 146 msec QRS Duration: 102 msec QT Interval: 368 msec QTC Interval: 419 msec P-R-T [place]: 36 - 82 - 50 degrees Normal sinus rhythm Normal ECG Electronically Signed By: Jalen Jones [id number]
--- NOTE | 2018-05-02 13:27 | PN ---
Date/Time of Note Date/Time of Note DATE: 05/02/18 TIME: 13:18 Assessment/Plan Lines/Catheters IV Catheter Type (from [facility]): Saline Lock Tong in Place (from [facility]): No Assessment/Plan Chief Complaint/Hosp Course 1. Acute appendicitis with microperforation: Will require 2 days IV antibiotics and transition to p.o. antibiotics for total of 5 days -IS -ambulate -ice pack to abdominal wall -advance diet as tolerated 2. Leukocytosis: Resolved -As above -Trend 3. Abdominal pain: Much improved -Pain management 4. Mild transaminitis with CT findings of Hepatomegaly with hepatic fatty infiltration: -Diet and exercise/weight management -medical/Hepatology follow-up 5. Small right fat-containing inguinal hernia: -Weight loss -Eventual outpatient surgical follow-up Thank you. Patient seen and examined in collaboration with Dr. Ramu Michaels. Subjective 24 Hr Interval Summary Feels well. Minimal tenderness around incision sites. Tolerating diet. No fevers, chills, sob, congested cough, cp, palpitations, dasilva, dizziness, nausea, vomiting, diarrhea, dysuria. + Flatus Exam/Review of Systems Vital Signs Vitals Vital Signs Date Temp Pulse Resp B/P (MAP) Pulse Ox O2 O2 Flow FiO2 Time Delivery Rate 05/02/18 97.8 71 18 123/74 98 08:02 (90) 05/01/18 Room Air 17:35 05/01/18 8.0 16:50 Intake and Output 05/01/18 05/01/18 05/02/18 1515:00 23:00 07:00 IntakeIntake Total 100 ml 2320 ml 1120 ml OutputOutput Total 5 ml BalanceBalance 100 ml 2315 ml 1120 ml Exam Free Text/Dictation Constitutional: alert, oriented, well developed Psych: nl mood/affect; No anxiety Head: normocephalic, atraumatic Eyes: nl conjunctiva, EOMI, nl lids, nl sclera ENMT: nl external ears & nose, nl lips & teeth, mucosa pink and moist Neck: supple, non-tender; No jvd Respiratory: normal air movement; No congested cough, No labored breathing Cardiovascular: regular rate and rhythm, nl pulses; No edema Gastrointestinal: soft, tender (parmjit-incisional: Incision sites dry without drainage/bruising/discoloration) Genitourinary - Male: nl penis, nl scrotum Musculoskeletal: nl extremities to inspection, nl gait and stance Extremities: normal pulses; No edema, No pitting pedal edema Neurological: nl speech, nl strength Skin: No rash or lesions Results Result Diagram: 05/02/1860805/02/1809 LOI GUY NP May 02, 2018 13:27
[2018-05-02 20:58] VITALS: BP 134/72; PULSE 96; RESP 18
[2018-05-03 02:22] VITALS: BP 121/61; PULSE 82; RESP 20
[2018-05-03] MEDS: PIPER-TAZO 3.375 GM IV (PMX) 100 ML IVPB SCH (06:16)
[2018-05-03] MEDS: SOD CHLORIDE 0.9% 1,000 ML IV SCH (07:57)
[2018-05-03 07:58] VITALS: BP 116/55; PULSE 65; RESP 18
--- NOTE | 2018-05-03 08:18 | PAC ---
Date/Time of Note Date/Time of Note DATE: 05/03/18 TIME: 08:18 Post-Anesthesia Notes Post-Anesthesia Note Last documented vital signs Vital Signs Date Temp Pulse Resp B/P (MAP) Pulse Ox O2 O2 Flow FiO2 Time Delivery Rate 05/03/18 98.7 65 18 116/55 98 Room Air 07:58 (75) 05/01/18 8.0 16:50 Activity: WNL Respiratory function: WNL Cardiovascular function: WNL Mental status: Baseline Pain reasonably controlled: Yes Hydration appropriate: Yes Nausea/Vomiting absent: No MARGRET BLANCO MD May 03, 2018 08:18
[2018-05-03] MEDS ORDERED: Work Note (10:55)
[2018-05-03] MEDS ORDERED: AMOX1TAB10 PO (10:55)
[2018-05-03] MEDS ORDERED: ACET325T33 PO (10:58)
--- NOTE | 2018-05-03 11:14 | PDOCDIS ---
Discharge Instructions CONDITION [id number] Patient Condition: [id number] Stable HOME CARE INSTRUCTIONS: [id number] Diet Instructions: [id number] Regular FOLLOW UP/APPOINTMENTS Follow-up Plan Ramu Michaels MD Specialty: General Surgery Office Address [address] [facility] [address] [place] [address] Office OTHER ORDERS: Other Orders: 1. Regular, preferably low-cholesterol diet as tolerated. 2. Keep incisions clean and dry. May shower. Avoid tub baths and swimming for 2 weeks. Use mild soap and pat dry the incisions. 3. Take medications as needed for pain. 4. Call the surgeon or go to the nearest ER if you have severe abdominal pain despite pain medications. 5. Call the surgeon or go to the nearest ER if you notice any bleeding or secretions coming out of the incision sites. Also call the surgeon if you notice any blood in stool, if you have persistent fevers, or any other unusual signs or symptoms. 6. Follow-up with the surgeon Dr. Michaels in 7 days for incision check. 7. Avoid heavy lifting [more than 10-15 pounds] for 4 weeks. MATTHEW HERNANDES NP May 03, 2018 11:14
--- NOTE | 2018-05-03 11:21 | DS ---
Date/Time of Note Date/Time of Note DATE: 05/03/18 TIME: 11:19 Discharge Summary Admission/Discharge Info Admit Date/Time May 01, 2018 at 05:41 Discharge Date/Time Discharge Diagnosis 1. Acute appendicitis with microperforation. Status post laparoscopic append ectomy with washout on 05/01/2018. 2. S/P sepsis with leukocytosis and tachycardia secondary to underlying appendicitis, present on admission. 3. Transaminitis without hyperbilirubinemia. Resolved. 4. Fatty liver (incidental finding). Patient Condition: Stable Consults Nila Alonzo MD, General Surgery. Procedures Operative Report Free Text/Dictation Preoperative Diagnosis 1. Acute appendicitis 2. BMI 30 Postoperative Diagnosis 1. Acute appendicitis with microperforation 2. BMI 30 3. Small right inguinal indirect hernia 4. Discussed the liver probably steatotic Operation Performed 1. Laparoscopic appendectomy and washout Surgeon: NILA ALONZO MD CT Abdomen & Pelvis IMPRESSION: 1. Acute appendicitis as described above without free air or abscess. 2. Small right fat containing inguinal hernia without herniated bowel or strangulation. III hepatomegaly with diffuse hepatic fatty infiltration. Hx of Present Illness This is a 22-year-old male who denied any significant past medical history who came to the emergency room with chief complaint of abdominal pain with associated nausea and vomiting with CT evidence of acute appendicitis, who was admitted to inpatient setting for further treatment and evaluation. Hospital Course The patient was kept n.p.o. He was started on antibiotics including coverage for anaerobes. General surgery consult was obtained. The patient was given adequate pain control. The patient underwent a laparoscopic appendectomy with washout on 05/01/2018. Intraoperative findings showed microperforation. Therefore, the patient was maintained on antimicrobial therapy as per general surgery. The patient also had evidence of sepsis with leukocytosis and tachycardia, present on admission secondary to underlying appendicitis. Status post appendectomy, the patient was started on a clear liquid diet and the patient's diet was advanced as tolerated to a regular consistency diet without any significant gastrointestinal symptoms. The patient was encouraged on f requent ablation and frequent use of incentive spirometry postoperatively. The patient was incidentally noticed to have transaminitis without hyperbilirubinemia upon ER presentation. The patient's transaminitis improved throughout the hospital course. This could have been secondary to underlying sepsis. The patient was also noticed to have a fatty liver incidentally. The patient's fasting lipid panel was satisfactory except that the patient's HDL was on the lower side. The patient was informed on a low-cholesterol diet. The patient had a stable hospital course. The patient was cleared by general surgery to be discharged home on oral antibiotics. The patient verbalized no need for any opioids for pain control. Therefore, the patient was instructed to use [id number] Tylenol or Motrin for pain control after discharge. Discharge Instructions 1. Regular, preferably low-cholesterol diet as tolerated. 2. Keep incisions clean and dry. May shower. Avoid tub baths and swimming for 2 weeks. Use mild soap and pat dry the incisions. 3. Take medications as needed for pain. 4. Call the surgeon or go to the nearest ER if you have severe abdominal pain despite pain medications. 5. Call the surgeon or go to the nearest ER if you notice any bleeding or secretions coming out of the incision sites. Also call the surgeon if you notice any blood in stool, if you have persistent fevers, or any other unusual signs or symptoms. 6. Follow-up with the surgeon Dr. Alonzo in 7 days for incision check. 7. Avoid heavy lifting [more than 10-15 pounds] for 4 weeks. The patient verbalized understanding of his discharge instructions At this time I would like to thank all the consultants for seeing the patient, doing the necessary procedures, and providing clinical recommendations. The patient was seen in collaboration with Dr. Myers. Home Meds Active Scripts Acetaminophen* (Tylenol*) 325 Mg Tablet, 650 MG PO Q6H PRN for PAIN LEVEL 1-3 OR FEVER, #30 TAB Prov:MATTHEW HERNANDES NP 05/03/18 [Work Note] No Conflict Check This is to certify that this patient was admitted to [facility] under my care from 05/01/2018 to 05/03/2018. The patient can return back to work on 05/04/2018 with no restrictions for his current job. Prov:MATTHEW HERNANDES NP 05/03/18 Amoxicillin/Potassium Clav (Amox-Clav 875-125 mg Tablet) 875-125 mg Tab, 1 TAB PO BID for 5 Days, #10 TAB Prov:MATTHEW HERNANDES NP 05/03/18 Follow-up Plan Nila Alonzo MD Specialty: General Surgery Office Address [address] [facility] [address] [place] [address] Office Primary Care Provider Not On Staff Doctor Time spent on discharge: > 30 minutes Pending Labs Laboratory Tests Test 05/03/18 04:58 White Blood Count 6.8 10^3/ul (4.8-10.8) Red Blood Count 4.60 10^6/ul (4.70-6.10) Hemoglobin 13.8 g/dl (14.0-18.0) Hematocrit 40.1 % (42.0-52.0) Mean Corpuscular Volume 87.2 fl (82.0-101.0) Mean Corpuscular Hemoglobin 30.0 pg (29.0-33.0) Mean Corpuscular Hemoglobin Concent 34.4 g/dl (32.0-37.0) Red Cell Distribution Width 11.9 % (11.5-14.5) Platelet Count 201 10^3/UL (140-415) Mean Platelet Volume 11.7 fl (7.4-10.4) Immature Granulocytes % 0.300 % (0.001-0.429) Neutrophils % 60.8 % (39.0-77.0) Lymphocytes % 29.9 % (15.0-51.0) Monocytes % 6.5 % (0.0-11.0) Eosinophils % 2.2 % (0.0-7.0) Basophils % 0.3 % (0.0-2.0) Nucleated Red Blood Cells % 0.0 /100WBC (0.0-0.0) Immature Granulocytes # 0.020 10^3/ul (0.0-0.031) Neutrophils # 4.1 10^3/ul (1.6-7.5) Lymphocytes # 2.0 10^3/ul (0.8-2.9) Monocytes # 0.4 10^3/ul (0.3-0.9) Eosinophils # 0.2 10^3/ul (0.0-0.5) Basophils # 0.0 10^3/ul (0.0-0.1) Nucleated Red Blood Cells # 0.0 10^3/ul (0.0-0.0) Sodium Level 142 mmol/L (135-144) Potassium Level 3.7 mmol/L (3.5-5.1) Chloride Level 104 mmol/L (97-110) Carbon Dioxide Level 27 mmol/L (21-31) Anion Gap 11 (5-13) Blood Urea Nitrogen 7 mg/dl (7-20) Creatinine 0.77 mg/dl (0.61-1.24) Est Glomerular Filtrat Rate mL/min > 60 mL/min (>60) Glucose Level 99 mg/dl (70-220) Calcium Level 9.3 mg/dl (8.4-10.2) Phosphorus Level 4.0 mg/dl (2.5-4.9) Magnesium Level 2.0 mg/dl (1.7-2.5) Total Bilirubin 0.8 mg/dl (0.2-1.3) Direct Bilirubin 0.00 mg/dl (0.00-0.20) Indirect Bilirubin 0.8 mg/dl (0-1.1) Aspartate Amino Transf (AST/SGOT) 46 IU/L (15-46) Alanine Aminotransferase (ALT/SGPT) 93 IU/L (13-69) Alkaline Phosphatase 75 IU/L (42-121) Total Protein 7.4 g/dl (6.1-8.1) Albumin 4.1 g/dl (3.3-4.9) Globulin 3.30 g/dl (1.3-3.2) Albumin/Globulin Ratio 1.24 MATTHEW HERNANDES NP May 03, 2018 11:21
--- NOTE | 2018-05-03 11:31 | PN ---
Date/Time of Note Date/Time of Note DATE: 05/03/18 TIME: 11:27 Assessment/Plan Lines/Catheters IV Catheter Type (from [facility]): Peripheral IV Tong in Place (from [facility]): No Assessment/Plan Chief Complaint/Hosp Course 1. Acute appendicitis with microperforation: Will require 2 days IV antibiotics and transition to p.o. antibiotics for total of 5 days -IS -ambulate -ice pack to abdominal wall -advance diet as tolerated -May be discharged per medical team with p.o. antibiotics. To follow in office in 1-2 weeks. Patient to call and make appointment. 2. Leukocytosis: Resolved -As above -Trend 3. Abdominal pain: Much improved -Pain management 4. Mild transaminitis with CT findings of Hepatomegaly with hepatic fatty infiltration: -Diet and exercise/weight management -medical/Hepatology follow-up 5. Small right fat-containing inguinal hernia: -Weight loss -Eventual outpatient surgical follow-up Thank you. Patient seen and examined in collaboration with Dr. Ramu Michaels. Subjective 24 Hr Interval Summary Feels well. Tolerating diet. No fevers, chills, sob, congested cough, cp, palpitations, dasilva, dizziness, nausea, vomiting, diarrhea, dysuria. Exam/Review of Systems Vital Signs Vitals Vital Signs Date Temp Pulse Resp B/P (MAP) Pulse Ox O2 O2 Flow FiO2 Time Delivery Rate 05/03/18 98.7 65 18 116/55 98 Room Air 07:58 (75) 05/01/18 8.0 16:50 Intake and Output 05/02/18 05/02/18 05/03/18 1515:00 23:00 07:00 IntakeIntake Total 660 ml 1340 ml 700 ml BalanceBalance 660 ml 1340 ml 700 ml Exam Free Text/Dictation Constitutional: alert, oriented, well developed Psych: nl mood/affect; No anxiety Head: normocephalic, atraumatic Eyes: nl conjunctiva, EOMI, nl lids, nl sclera ENMT: nl external ears & nose, nl lips & teeth, mucosa pink and moist Neck: supple, non-tender; No jvd Respiratory: normal air movement; No congested cough, No labored breathing Cardiovascular: regular rate and rhythm, nl pulses; No edema Gastrointestinal: soft, nontender (Incision sites dry without drainage/brui sing/discoloration) Genitourinary - Male: nl penis, nl scrotum Musculoskeletal: nl extremities to inspection, nl gait and stance Extremities: normal pulses; No edema, No pitting pedal edema Neurological: nl speech, nl strength Skin: No rash or lesions Results Result Diagram: 05/03/18 0458 05/03/18 0458 LOI GUY NP May 03, 2018 11:31
== END 2018-05-03 12:04 | disposition home or self-care (01) | DRG 340 ==
LOC: FTE 02:06 → PP2 05:41
PROVIDERS: ADMIT Family Medicine; ATTEND Family Medicine
PROC: 0DTJ4ZZ Resection of Appendix, Percutaneous Endoscopic Approach (ICD-10-PCS; principal; 2018-05-01 18:00)
DX: K35.32 Acute appendicitis with perforation, localized peritonitis, and gangrene, without abscess (principal); K40.90 Unilateral inguinal hernia, without obstruction or gangrene, not specified as recurrent; E66.9 Obesity, unspecified; Z68.29 Body mass index [BMI] 29.0-29.9, adult; K76.0 Fatty (change of) liver, not elsewhere classified
CPT/HCPCS: 71045; 74176; 80053; 80061; 81003; 83036; 83690; 83735; 84100; 84439; 84443; 85025; 85610; 85730; 88304; 93005; J1170; J1885; J2250; J2270; J2405; J2543; J2710; J2765; J2795; J7030

== ENCOUNTER 2018-08-24 10:57 | Emergency (ER) | payer OTHER ==
[~2018-08-24] VITALS: Ht 170.2 cm; Wt 81.0 kg
[~2018-08-24 10:57] MED LIST: ACET325T33 PO; AMOX1TAB10 PO; Work Note
[2018-08-24 11:00] VITALS: BP 138/89; PULSE 67; RESP 18; Ht 170.2 cm; Wt 81.0 kg
--- NOTE | 2018-08-24 12:55 | ERD ---
ER Documentation Chief Complaint Chief Complaint pt is bib family with c/o right great toenail pain x 1 month HPI 23-year-old male, presents to the emergency department, complaining of pers istent right great toenail pain for 1 month, associated with local edema, erythema and purulent discharge. The patient had a history of ingrown toenails with previous incision and drainage. Currently, the patient denies fever, no chills, no history of recent trauma. ROS All systems reviewed and are negative except as per history of present illness. Medications Home Meds Active Scripts Ibuprofen* (Motrin*) 400 Mg Tab, 400 MG PO Q6H PRN for PAIN AND OR ELEVATED TEMP, #20 TAB Prov:ERMELINDA HEARD MD 08/24/18 Cephalexin* (Keflex*) 500 Mg Capsule, 500 MG PO BID for 7 Days, CAP Prov:ERMELINDA HEARD MD 08/24/18 Sulfamethoxazole/Trimethoprim* (Bactrim Ds* Tablet) 1 Each Tablet, 1 TAB PO BID, #14 TAB Prov:ERMELINDA HEARD MD 08/24/18 Acetaminophen* (Tylenol*) 325 Mg Tablet, 650 MG PO Q6H PRN for PAIN LEVEL 1-3 OR FEVER, #30 TAB Prov:MATTHEW HERNANDES NP 05/03/18 [Work Note] No Conflict Check This is to certify that this patient was admitted to [facility] under my care from 05/01/2018 to 05/03/2018. The patient can return back to work on 05/04/2018 with no restrictions for his current job. Prov:MATTHEW HERNANDES NP 05/03/18 Amoxicillin/Potassium Clav (Amox-Clav 875-125 mg Tablet) 875-125 mg Tab, 1 TAB PO BID for 5 Days, #10 TAB Prov:MATTHEW HERNANDES NP 05/03/18 Allergies Allergies: Coded Allergies: No Known Drug Allergy (Verified Allergy, Unknown, 05/01/18) PMhx/Soc Medical and Surgical Hx: pt denies Medical Hx History of Surgery: No Anesthesia Reaction: No Hx Neurological Disorder: No Hx Respiratory Disorders: No Hx Cardiac Disorders: No Hx Psychiatric Problems: No Hx Miscellaneous Medical Probl: No Hx Alcohol Use: No Hx Substance Use: No Hx Tobacco Use: No FmHx Family History: No diabetes, No coronary disease Physical Exam Vitals Vital Signs Date Temp Pulse Resp B/P (MAP) Pulse Ox O2 O2 Flow FiO2 Time Delivery Rate 08/24/18 98.3 67 18 138/89 98 11:00 (105) Physical Exam Const: No acute distress Head: Atraumatic Eyes: Normal Conjunctiva ENT: Normal External Ears, Nose and Mouth. Neck: Full range of motion. No meningismus. Resp: Clear to auscultation bilaterally Cardio: Regular rate and rhythm, no murmurs Abd: Soft, non tender, non distended. Normal bowel sounds Skin: No petechiae or rashes Back: No midline or flank tenderness Ext: Right great toenail with lateral fold with edema, erythema and purulent discharge. Otherwise no cyanosis, or edema Neur: Awake and alert Psych: Normal Mood and Affect Results 24 hrs Current Medications Medications Dose Sig/Abigail Start Time Status Last (Trade) Ordered Route PRN Stop Time Admin Dose Reason Admin Lidocaine 20 ml ONCE ONCE 08/24/18 DC (Xylocaine SC 13:30 08/24/18 1% (Mdv) 20 13:31 ml) Procedures/MDM Differential diagnoses include paronychia, cellulitis, diabetic ulcer, osteomyelitis. Low suspicion for acute or chronic systemic process. Risks and benefits of the procedure were discussed with patient including pain, recurrence of ingrown toenail, infection. The patient provides verbal consent. Ingrown toenail removal procedure Location: Right great toenail Technique: Patient in supine position, toe prepped with povidone-iodine solution. A glendy dard digital block performed with 1 percent lidocaine (without epinephrine) achiving adequate anesthesia. Iris scissors slid under the cuticle the nail plate from the proximal nail fold. Bandage scissors used to cut the distal end of the nail straight back beneath the proximal nail fold, lateral pointing spicule removed, excessive lateral granulation tissue removed with silver nitrate. Adequate homeostasis, bandage with antibiotic ointment applied. Complications: None. Neurovascularly intact post procedure. 48 hour wound check recommended. Scar minimization instructions given. The patient will be discharged with a prescription for: Some side effects of prescribed medications (headache, rash, nausea, vomiting, diarrhea, drowsiness, habituation, bleeding, hypertension, interactions with other medications) were reviewed. If the symptoms get worse return to the Emergency Department immediately. Instructions explained and given directly by me to the patient with acknowledgment and demonstrated understanding. Disclaimer: Inadvertent spelling and grammatical errors are likely due to EHR/dictation software use and do not reflect on the overall quality of patient care. Also, please note that the electronic time recorded on this note does not necessarily reflect the actual time of the patient encounter. Departure Diagnosis: Primary Impression: Ingrowing right great toenail Condition: Stable Additional Instructions: Thank you very much for allowing us to participate in your care. Your health and safety is our top priority at [facility]. The evaluation in the emergency department has been done to rule out an acute emergency, therefore, chronic conditions like malignancy or other diseases have not been evaluated; therefore, you need to follow up with a primary care provider in the next 48h. If symptoms persist, worsen or new symptoms develop, then patient should return to the ED immediately. Call your primary care doctor TOMORROW for an appointment during the next 2-4 days and bring all the information provided. Have prescriptions filled and follow precisely the directions on the label. If the symptoms get worse and your provider is unavailable, return to the Emergency Department immediately. ERMELINDA HEARD MD August 24, 2018 12:55
[2018-08-24] MEDS ORDERED: CEPH-443 PO (13:03)
[2018-08-24] MEDS ORDERED: IBUP-1561 PO (13:03)
[2018-08-24] MEDS ORDERED: SULF1TAB31 PO (13:03)
[2018-08-24] MEDS ORDERED: LIDOCAINE 1% (MDV) 20 ML INJ SC ONE (13:30)
== END 2018-08-24 14:22 | disposition home or self-care (01) ==
LOC: FTE 10:57
DX: L60.0 Ingrowing nail (principal)
CPT/HCPCS: 11750; Z7502; Z7610

== ENCOUNTER 2018-10-12 16:55 | Emergency (ER) | payer OTHER ==
[~2018-10-12] VITALS: Ht 180.3 cm; Wt 99.2 kg
[~2018-10-12 16:55] MED LIST changes: +CEPH-443 PO; +IBUP-1561 PO; +SULF1TAB31 PO
[2018-10-12 17:07] VITALS: BP 133/73; PULSE 66; RESP 16; Ht 180.3 cm; Wt 99.2 kg
--- NOTE | 2018-10-12 17:35 | ERD ---
ER Documentation Chief Complaint Chief Complaint INGROWN TOENAIL RT GREAT TOE HPI Patient is a 23 years old male with no known PMHx presenting to the clinic for ingrown right great toe nail x 2 weeks. Patient reports the pain is rated 1/10 and denies skin discoloration, pus drainage. Patient was seen on August 24, 2018 for similar event. Patient reports of following up with his PCP and was not given podiatry referral. Patient denies taking any OTC medication. ROS All systems reviewed and are negative except as per history of present illness. Medications Home Meds Active Scripts Ibuprofen* (Motrin*) 800 Mg Tab, 800 MG PO Q6, #30 TAB Prov:CONRADO JONES PA-C 10/12/18 Ibuprofen* (Motrin*) 400 Mg Tab, 400 MG PO Q6H PRN for PAIN AND OR ELEVATED TEMP, #20 TAB Prov:ERMELINDA HEARD MD 08/24/18 Cephalexin* (Keflex*) 500 Mg Capsule, 500 MG PO BID for 7 Days, CAP Prov:ERMELINDA HEARD MD 08/24/18 Sulfamethoxazole/Trimethoprim* (Bactrim Ds* Tablet) 1 Each Tablet, 1 TAB PO BID, #14 TAB Prov:ERMELINDA HEARD MD 08/24/18 Acetaminophen* (Tylenol*) 325 Mg Tablet, 650 MG PO Q6H PRN for PAIN LEVEL 1-3 OR FEVER, #30 TAB Prov:MATTHEW HERNANDES NP 05/03/18 [Work Note] No Conflict Check This is to certify that this patient was admitted to [facility] under my care from 05/01/2018 to 05/03/2018. The patient can return back to work on 05/04/2018 with no restrictions for his current job. Prov:MATTHEW HERNANDES NP 05/03/18 Amoxicillin/Potassium Clav (Amox-Clav 875-125 mg Tablet) 875-125 mg Tab, 1 TAB PO BID for 5 Days, #10 TAB Prov:MATTHEW HERNANDES NP 05/03/18 Allergies Allergies: Coded Allergies: No Known Drug Allergy (Verified Allergy, Unknown, 05/01/18) PMhx/Soc History of Surgery: No Anesthesia Reaction: No Hx Neurological Disorder: No Hx Respiratory Disorders: No Hx Cardiac Disorders: No Hx Psychiatric Problems: No Hx Miscellaneous Medical Probl: No Hx Alcohol Use: No Hx Substance Use: No Hx Tobacco Use: No Physical Exam Vitals Vital Signs Date Temp Pulse Resp B/P (MAP) Pulse Ox O2 O2 Flow FiO2 Time Delivery Rate 10/12/18 98.4 66 16 133/73 96 17:07 (93) Physical Exam Const: No acute distress Head: Atraumatic Eyes: Normal Conjunctiva Resp: Clear to auscultation bilaterally Cardio: Regular rate and rhythm, no murmurs Ext: No cyanosis, or edema Neur: Awake and alert Psych: Normal Mood and Affect Right great toe (hallux) exam: Ingrown toe nail noted on medial aspect with some skin perforation. No induration, cellulitis, mild tenderness, no pus drainage. Procedures/MDM Patient was seen and evaluated for right hallux ingrown toe nail without complications. Under sterile technique, digital block performed with 1% lidocaine. Medial toenail excision followed by extraction without complications. Patient tolerated the procedure well. Dressing applied. Patient is stable and ready for discharge. F/U with PCP. Patient will be given Ibuprofen. Departure Diagnosis: Primary Impression: Nail avulsion, toe Encounter type: initial encounter Qualified Codes: S91.209A - Unspecified open wound of unspecified toe(s) with damage to nail, initial encounter Condition: Stable Patient Instructions: Nail Avulsion, Partial Referrals: [facility] Additional Instructions: Patient advised to return to the ED immediately for new or worsening symptoms. Patient advised to follow up with primary care provider in the next 24-48 hours. Patient verbalized understanding and agrees with treatment plan and course of action. If patient has no primary care they may follow up with [facility] [address] [place] [address] or [facility] [address] [place] [address] or [facility] [address] [place] [address] CONRADO JONES PA-C Oct 12, 2018 17:35
[2018-10-12] MEDS ORDERED: IBUP800T48 PO (18:02)
== END 2018-10-12 18:56 | disposition home or self-care (01) ==
LOC: FTE 16:55
DX: L60.0 Ingrowing nail (principal); S91.201A Unspecified open wound of right great toe with damage to nail, initial encounter; X58.XXXA Exposure to other specified factors, initial encounter; Y92.9 Unspecified place or not applicable
CPT/HCPCS: 11765; Z7502; Z7610